=== PATIENT | male | born 1985 | race Caucasian/White ===

== ENCOUNTER 2018-01-03 17:10 | Emergency (ER) | payer OTHER ==
[2018-01-03 17:40] LABS: HEMATOCRIT 41.5 % (42.0-52.0); MEAN CELL VOLUME 91 fl (78-100); MEAN CORPUSCULAR HEMOGLOBIN 31 pg (27-31); MEAN CORPUSCULAR HGB CONC 34 g/dL (33-37); MEAN PLATELET VOLUME 9.5 fl (7.4-10.4); PLATELET COUNT 238 K/mm3 (130-400); RED BLOOD COUNT 4.57 M/mm3 (4.20-5.60); RED CELL DISTRIBUTION WIDTH 13.3 % (11.5-14.5)
[2018-01-03 17:50] LABS: ALBUMIN 4.3 g/dL (3.5-5.0); BUN/CREATININE RATIO 16.3 (6.0-26.0); CALCIUM 9.2 mg/dL (8.4-10.2); POTASSIUM 3.6 mmol/L (3.6-5.0); TOTAL BILIRUBIN 1.4 mg/dL (0.2-1.3); TOTAL PROTEIN 7.3 g/dL (6.3-8.2)
[2018-01-03 18:02] LABS: LYMPHOCYTE 15 % (20-51); MONOCYTE 9 % (3-10); NEUTROPHILS 75 % (42-75)
[2018-01-03] MEDS ORDERED: BACTRIM DS TAB1 EACH PO (20:53)
[2018-01-03] MEDS ORDERED: NORCO 325 MG-51 TA1 PO (20:53)
[2018-01-03 21:08] VITALS: BP 120/75
== END 2018-01-03 21:08 | disposition home or self-care (01) ==
LOC: ED 17:10
PROVIDERS: Nurse Practitioner
DX: S06.9X9A Unspecified intracranial injury with loss of consciousness of unspecified duration, initial encounter (principal); S91.012A Laceration without foreign body, left ankle, initial encounter; V86.56XA Driver of dirt bike or motor/cross bike injured in nontraffic accident, initial encounter; F17.200 Nicotine dependence, unspecified, uncomplicated; Z28.21 Immunization not carried out because of patient refusal
CPT/HCPCS: A4550; J1170; J1885; J2405; L0120; Q9967